=== PATIENT | male | born 1990 | race African-American/Black ===

== ENCOUNTER 2016-10-31 11:35 | Emergency (ER) | payer SELFPAY ==
--- NOTE | 2016-10-31 12:42 | ER Document Report ---
HPI - HPI Pain Level: 4 Notes: Patient is a 26-year-old male who presents the ED complaining of lesions to his lips x1 day. Pt states that he also has left posterior thigh (hamstring) spasming and pain s/p feeling it pull while he was working 3 days ago. Pt states he has tried massage and otc meds with minimal relief. The pain does not radiate. He has occ sharp pain with spasming/soreness type pain. He is still able to ambulate. Pt requesting work note. He has not noticed any erythema, warmth, or ecchymosis. His lips began swelling this morning and lesions showed up. He has never had these lesions before. He is still able to eat/drink/swallow/breathe without any difficulties. He does have some pain associated. Denies any drug allergies or significant PMH otherwise. Denies any headache, fever, neck pain, changes in vision/speech, URI, sore throat, chest pain, palpitations, syncope, cough, shortness of breath, wheeze, dyspnea, abdominal pain, nausea/vomiting/diarrhea, urinary retention, dysuria, hematuria , numbness/tingling, muscle paralysis/weakness. - ROS Notes: REVIEW OF SYSTEMS: CONSTITUTIONAL : Denies fever, chills, or sweats. Denies recent illness. EENT: Denies eye, ear, throat, or mouth pain or symptoms. Denies nasal or sinus congestion or discharge. Denies throat, tongue, or mouth swelling or difficulty swallowing. CARDIOVASCULAR: Denies chest pain. Denies palpitations or racing or irregular heart beat. Denies ankle edema. RESPIRATORY: Denies cough, cold, or chest congestion. Denies shortness of breath, difficulty breathing, or wheezing. GASTROINTESTINAL: Denies abdominal pain or distention. Denies nausea, vomiting , or diarrhea. Denies blood in vomitus, stools, or per rectum. Denies black, tarry stools. Denies constipation. GENITOURINARY: Denies difficulty urinating, painful urination, burning, frequency, blood in urine, or discharge. MUSCULOSKELETAL: see hpi SKIN: see hpi HEMATOLOGIC : Denies easy bruising or bleeding. LYMPHATIC: Denies swollen, enlarged glands. NEUROLOGICAL: Denies confusion or altered mental status. Denies passing out or loss of consciousness. Denies dizziness or lightheadedness. Denies headache. Denies weakness or paralysis or loss of use of either side. Denies problems with gait or speech. Denies sensory loss, numbness, or tingling. ALL OTHER SYSTEMS REVIEWED AND NEGATIVE. Dictation was performed using [employer] voice recognition software - CARDIOVASCULAR Cardiovascular: DENIES: Chest pain - DERM Skin Color: Normal Past Medical History - Social History Smoking Status: Current Every Day Smoker Chew tobacco use (# tins/day): No Frequency of alcohol use: None Drug Abuse: None Family History: Reviewed & Not Pertinent Renal/ Medical History: Denies: Hx Peritoneal Dialysis Surgical Hx: Negative - Immunizations Immunizations up to date: Yes Hx Diphtheria, Pertussis, Tetanus Vaccination: Yes Vertical Provider Document - CONSTITUTIONAL Agree With Documented VS: Yes Notes: PHYSICAL EXAMINATION: GENERAL: Well-appearing, well-nourished and in no acute distress. HEAD: Atraumatic, normocephalic. EYES: Pupils equal round and reactive to light, extraocular movements intact, sclera anicteric, conjunctiva are normal. ENT: EAC clear b/l. TM's intact b/l without erythema, fluid, or perforation. Nares patent and without discharge. oropharynx clear without exudates. No tonsilar hypertrophy or erythema. Moist mucous membranes. No sinus tenderness. uvula midline. No palatine shift. No tongue protrusion or resp compromise. Mouth: + vesicular grouped erythemic lesions noted to lips consistent with herpes infection. + mild tenderness. NECK: Normal range of motion, supple without lymphadenopathy. No rigidity/ meningismus. LUNGS: Breath sounds clear to auscultation bilaterally and equal. No wheezes rales or rhonchi. HEART: Regular rate and rhythm without murmurs, rubs, gallops. Musculoskeletal: Lt LE: FROM to passive/active. Strength 5+/5. No obvious rupture noted. + tenderness/spasming to the posterior mid thigh. No palp tenderness along deep veins, nor is there any warmth, swelling, or erythema. No calf tenderness. Juliann neg. N/V intact distal. Extremities: No cyanosis, clubbing, or edema b/l. Peripheral pulses 2+. Capillary refill less than 3 seconds. NEUROLOGICAL: Cranial nerves grossly intact. Normal speech, normal gait. Normal sensory, motor exams PSYCH: Normal mood, normal affect. SKIN: see mouth exam. - INFECTION CONTROL TRAVEL OUTSIDE OF THE [place] IN LAST 30 DAYS: No - RESPIRATORY O2 Sat by Pulse Oximetry: 98 Course - Re-evaluation Re-evalutation: 10/31/16 12:55 Patient is an afebrile, well-hydrated, 26-year-old male who presents the ED with an initial oral herpes outbreak as well as muscle spasm/strain to the left posterior thigh. Vitals are stable. PE otherwise unremarkable. No imaging warranted at this time. Low suspicion/risk for any DVT, SVT, PE, ACS, pericarditis, dissection, rupture, fracture, respiratory compromise, pharyngeal /ty-tonsillar abscess, angioedema, sepsis, meningitis. Patient is aware that his condition can change from initial presentation and he needs to monitor symptoms closely and seek medical attention if any acute changes. I will send him home with a prescription for Valtrex, baclofen, and naproxen. Work note was provided. Conservative measures otherwise for symptoms. Recheck with your PCM this week. Consider consult with orthopedics/physical therapy. Return to the ED with any worsening/concerning symptoms otherwise as reviewed in discharge. Patient is in agreement. - Vital Signs Vital signs: Temp Pulse Resp BP Pulse Ox 98.0 F 74 16 136/87 H 98 10/31/16 11:48 10/31/16 11:48 10/31/16 11:48 10/31/16 11:48 10/31/16 11:48 Discharge - Discharge Clinical Impression: Oral herpes, Muscle strain Condition: Stable Disposition: HOME, SELF-CARE Instructions: Herpes Simplex ([facility]), Leg Pain Nonspecific ([facility]), Muscle Strain ( [facility]) Additional Instructions: Rest, Ice, Compression, Elevation Take meds as directed Avoid skin to skin contact with active herpes infection until lesions resolve Tylenol/ibuprofen as needed Light stretches daily Strength exercises as able Moist heat and massage may help F/u with your PCP this week for a recheck Consider consult(s) with Orthopedics/physical therapy for ongoing/worsening symptoms Return to the ED with any worsening symptoms and/or development of fever, headache, chest pain, palpitations, syncope, shortness of breath, trouble breathing, abdominal pain, n/v/d, muscle weakness/paralysis, numbness/tingling, swelling, redness, or other worsening symptoms that are concerning to you. Prescriptions: Baclofen [Baclofen 10 mg Tablet] 5 mg PO BID PRN #10 tablet PRN Reason: Naproxen 500 mg PO BID PRN #30 tablet PRN Reason: Valacyclovir HCl [Valacyclovir] 2 g PO BID #4 tablet Forms: Elevated Blood Pressure, Smoking Cessation Education, Return to Work Referrals: [facility] ([facility] [Provider Group] - Follow up as needed [facility] [Provider Group] - Follow up as needed
[2016-10-31 12:54] VITALS: BP 135/80
== END 2016-10-31 12:54 | disposition home or self-care (01) ==
LOC: ER 11:35
DX: B00.89 Other herpesviral infection (principal); K13.0 Diseases of lips; M62.838 Other muscle spasm; F17.200 Nicotine dependence, unspecified, uncomplicated
CPT/HCPCS: 99283

== ENCOUNTER 2019-01-14 18:05 | Emergency (ER) | payer SELFPAY ==
[2019-01-14] MEDS ORDERED: KETOROLAC TROMETHAMINE INJ/PF 30 MG/1 ML SDV IM ONE (18:31)
[2019-01-14] MEDS ORDERED: DEXAMETHASONE SOD PHOS INJ 10 MG/1 ML VIAL IM ONE (18:31)
--- NOTE | 2019-01-14 18:33 | ER Document Report ---
ED Fall - General Chief Complaint: Fall Injury Stated Complaint: FALL/BACK PAIN,LEFT KNEE PAIN Time Seen by Provider: 01/14/19 18:28 Primary Care Provider: [facility] ([facility] [Provider Group] - Follow up as needed Mode of Arrival: Ambulatory Information source: Patient Notes: 28-year-old male presented to ED for complaint of back pain sore throat and left knee left knee pain. He states he fell landing on his tailbone about noontime when he slipped on the sidewalk. He states he has not had any medicine since he fell. He states someone else in the family has strep and he does have a sore throat. Patient is alert and oriented respirations regular nonlabored speaking in full sentences. He does walk with even steady gait. TRAVEL OUTSIDE OF THE [place] IN LAST 30 DAYS: No - HPI Occurred: This afternoon Where: Outdoors, Public place Context: Slipped Associated symptoms: None Location of injury/pain: Back, Knee Quality of pain: Achy, Sharp Severity: Moderate Pain Level: 3 - Related data Allergies/Adverse Reactions: No Known Allergies Allergy (Verified 10/31/16 11:50) Past Medical History - General Information source: Patient - Social History Smoking Status: Never Smoker Frequency of alcohol use: None Drug Abuse: None Lives with: Family Family History: Reviewed & Not Pertinent Patient has suicidal ideation: No Patient has homicidal ideation: No - Past Medical History Cardiac Medical History: Reports: None Pulmonary Medical History: Reports: None EENT Medical History: Reports: None Neurological Medical History: Reports: None Endocrine Medical History: Reports: None Renal/ Medical History: Reports: None Malignancy Medical History: Reports None GI Medical History: Reports: None Musculoskeletal Medical History: Reports Hx Musculoskeletal Trauma Skin Medical History: Reports None Psychiatric Medical History: Reports: Hx Depression Traumatic Medical History: Reports: Hx Fractures - Left wrist Infectious Medical History: Reports: None Surgical Hx: Negative Past Surgical History: Reports: None - Immunizations Immunizations up to date: Yes Hx Diphtheria, Pertussis, Tetanus Vaccination: No Review of Systems - Review of Systems Constitutional: No symptoms reported EENT: Nose congestion, Nose discharge, Sinus discharge, Throat pain Cardiovascular: No symptoms reported Respiratory: No symptoms reported Gastrointestinal: No symptoms reported Genitourinary: No symptoms reported Male Genitourinary: No symptoms reported Musculoskeletal: Back pain, Muscle pain, Muscle stiffness Skin: No symptoms reported Hematologic/Lymphatic: No symptoms reported Neurological/Psychological: No symptoms reported -: Yes All other systems reviewed and negative Physical Exam - Vital signs Vitals: Temp Pulse Resp BP Pulse Ox 98.3 F 78 18 137/85 H 98 01/14/19 18:06 01/14/19 18:06 01/14/19 18:06 01/14/19 18:06 01/14/19 18:06 Interpretation: Normal - General General appearance: Appears well, Alert - HEENT Head: Normocephalic, Atraumatic Eyes: Normal Pupils: PERRL Ears: Normal External canal: Normal Tympanic membrane: Normal Sinus: Normal Nasal: Purulent discharge, Swelling Mouth/Lips: Normal Mucous membranes: Normal Pharynx: Post nasal drainage Neck: Normal - Respiratory Respiratory status: No respiratory distress Chest status: Nontender Breath sounds: Normal Chest palpation: Normal - Cardiovascular Rhythm: Regular Heart sounds: Normal auscultation Murmur: No - Abdominal Inspection: Normal Distension: No distension Bowel sounds: Normal Tenderness: Nontender Organomegaly: No organomegaly - Back Back: Normal, Tender, Vertebra tenderness - Lumbar area denies any loss of control of bowel bladder, saddle anesthesia, loss of control or sensation to the lower extremities. Patient is walking with a even steady gait. - Extremities General upper extremity: Normal inspection, Nontender, Normal color, Normal ROM, Normal temperature General lower extremity: Normal inspection, Nontender, Normal color, Normal ROM, Normal temperature, Normal weight bearing. No: Juliann's sign - Neurological Neuro grossly intact: Yes Cognition: Normal Orientation: AAOx4 Mckinley Coma Scale Eye Opening: Spontaneous Mckinley Coma Scale Verbal: Oriented [place] Coma Scale Motor: Obeys Commands [place] Coma Scale Total: 15 Speech: Normal Motor strength normal: LUE, RUE, LLE, RLE Sensory: Normal - Psychological Associated symptoms: Normal affect, Normal mood - Skin Skin Temperature: Warm Skin Moisture: Dry Skin Color: Normal Course - Re-evaluation Re-evalutation: 01/14/19 19:35 After performing a Medical Screening Examination, I estimate there is LOW risk for EXPANDING OR RUPTURED ABDOMINAL AORTIC ANEURYSM, CAUDA EQUINA SYNDROME, EPIDURAL MASS LESION, or HERNIATED DISK CAUSING SEVERE SPINAL STENOSIS, thus I consider the discharge disposition reasonable. I have reevaluated this patient multiple times and no significant life threatening changes are noted. The patient and I have discussed the diagnosis and risks, and we agree with discharging home and close follow-up. We also discussed returning to the Emergency Department immediately if new or worsening symptoms occur with the understanding that symptoms and presentations can change. We have discussed the symptoms which are most concerning (e.g., saddle anesthesia, urinary or bowel i ncontinence or retention, changing or worsening pain) that necessitate immediate return. She also has a viral sore throat strep test was negative. I have discussed this with patient. - Vital Signs Vital signs: Temp Pulse Resp BP Pulse Ox 98.3 F 71 16 142/81 H 97 01/14/19 19:36 01/14/19 19:36 01/14/19 19:36 01/14/19 19:36 01/14/19 19:36 - Diagnostic Test Radiology reviewed: Image reviewed, Reports reviewed Discharge - Discharge Clinical Impression: Sore throat (viral) Fall Qualifiers: Encounter type: initial encounter Qualified Code(s): W19.XXXA - Unspecified fall, initial encounter Low back pain Qualifiers: Chronicity: acute Back pain laterality: bilateral Sciatica presence: without sciatica Qualified Code(s): M54.5 - Low back pain Condition: Stable Disposition: HOME, SELF-CARE Instructions: Family Physicians / Practices Additional Instructions: LOW BACK PAIN: Three out of every four people will have an episode of disabling back pain during their lifetime. Most commonly the pain is due to straining of the muscles and ligaments in the low back. Usual treatment includes: (1) Rest on a firm surface. Avoid lying on your stomach. (2) Ice pack the painful area. After a few days, gentle heat may be used intermittently to relax the area, or ice packs can be continued. (3) Medication may be needed -- muscle relaxers and antiinflammatory medicines are commonly used. (4) As the back improves, exercises are prescribed to strengthen the back and abdominal muscles. Your doctor will advise you on the proper care for your back at each stage in your recovery. You may be better in a few days -- or healing may take several weeks. If new symptoms of a "herniated disc" (radiation of pain, numbness, or tingling down the back of the leg or weakness in the leg) occur, you should be re-examined. Further testing may be necessary. SORE THROAT: Sore throats may be caused by viruses, bacteria, or fungi. Most are due to a virus, and must get better on their own. Bacterial sore throats, particularly those due to "strep," need treatment with antibiotics. If an antibiotic is prescribed, be sure to take the medication for a full 10 days. Failure to take the antibiotic can result in complications such as rheumatic fever. Sometimes, an injection of antibiotics is given instead of pills or liquid. This single "shot" is equal in effectiveness to the oral medication. To relieve symptoms, take acetaminophen for pain. Sip clear liquids frequently, or eat popsicles or ice chips. Anesthetic sprays or lozenges may help. Make sure the air in the room is not too dry. Avoid using decongestants or antihistamines. Call the doctor if there is no improvement in two days, or if you have difficulty breathing, increasing throat pain, high fever, rash, or frequent vomiting. MUSCLE RELAXERS: Muscle relaxing medications are usually prescribed for acute muscle spasm or injury to the neck and back. They are often combined with antiinflammatory pain medication for increased relief. You may stop the muscle relaxer when the pain and stiffness have improved. Start the medication again if spasms recur. Muscle relaxers may cause drowsiness, especially with the first dose. Do not operate machinery or drive while under the effects of the medication. Most muscle relaxers last up to 24 hours. Do not combine the medication with alcohol. ICE PACKS: Apply ice packs frequently against the painful area. Many different schedules are recommended, such as "20 minutes on, 20 minutes off" or "one hour ice, two hours rest." If you need to work, you may need to go longer between ice treatments. You should plan to have the area ice packed AT LEAST one fourth of the time. The ice should be applied over the wrap, tape, or splint, or over a layer of cloth -- not directly against the skin. Some ice bags have a built-in cloth and can be put directly on the skin. WARM PACKS: After approximately two days, apply gentle heat (such as a heating pad or hot water bottle) for about 20 to 30 minutes about every two hours -- at least four times daily. Warmth and elevation will help you make a more rapid recovery, and will ease the pain considerably. Do not use HOT heat, and never apply heat for longer than 30 minutes. The continuous heat can invisibly damage skin and muscles -- even when no burn is seen on the surface. Damaged muscles can make you MORE sore. Stretching Exercises for the Back The physician has recommended that you begin stretching exercises for your back. These are often used even while the back is painful. However, you should notify the physician if the activities seem to increase your pain. PELVIC TILT: Lie flat on your back with knees bent. Tighten your stomach and buttock muscles so it flattens your lower back against the floor. Hold 10 seconds. Repeat 10 times, twice daily. KNEE RAISE: Lying on the back with knees bent, raise one knee to your chest, then the other. Hold both knees against the chest 10 seconds, then lower one knee at a time. Repeat 10 times, twice daily. PARTIAL TRUNK RAISE: Lie face down, arms at your sides. Keeping your waist on the floor, use your arms raise your chest up. Support yourself on your elbows for 30 seconds. Repeat twice daily, increasing the time to two minutes as you recover. STEROID MEDICATION: You have been given an injection of medicine of the cortisone/steroid class. This medication is used to control inflammation or allergy. It is often continued as a pill for a short period of time, until the acute process subsides. There are usually no side effects from short-term use of cortisone-like medications. Some persons feel an increased sense of well-being and are not sleepy at bedtime. Long-term use of cortisone medications is best avoided, unless required for a severe condition. If your condition does not remit, or relapses after the course of corticosteroid medication, you should consult your physician. Toradol Injection You have been given an injection of ketorolac tromethamine (Toradol). This is an excellent, safe drug for pain control. It also has potent antiinflammatory action. You should have significant pain relief within about one hour. Toradol is not addicting and is non-sedating. It does not interfere with driving or work. Call or return if you develop itching, hives, shortness of breath, or rash. FOLLOW-UP CARE: If you have been referred to a physician for follow-up care, call the physicians office for an appointment as you were instructed or within the next two days. If you experience worsening or a significant change in your symptoms, notify the physician immediately or return to the Emergency Department at any time for re-evaluation. Prescriptions: Cyclobenzaprine HCl [Flexeril 10 mg Tablet] 10 mg PO TIDP PRN #15 tab PRN Reason: Forms: Elevated Blood Pressure, Return to Work Referrals: [facility] ([facility]) [Provider Group] - Follow up as needed
--- NOTE | 2019-01-14 18:59 | RADIOLOGY REPORT (SQ) ---
EXAM DESCRIPTION: L SPINE WHOLE COMPLETED DATE/TIME: 01/14/2019 6:48 pm REASON FOR STUDY: fall low back pain COMPARISON: None. NUMBER OF VIEWS: Five views including obliques. TECHNIQUE: AP, lateral, oblique, and sacral radiographic images acquired of the lumbar spine. LIMITATIONS: None. FINDINGS: MINERALIZATION: Normal. SEGMENTATION: Normal. No transitional anatomy. ALIGNMENT: Decreased lordosis. VERTEBRAE: Maintained height. No fracture or worrisome bone lesion. DISCS: Preserved height. No significant osteophytes or end plate irregularity. POSTERIOR ELEMENTS: Pedicles and facets are intact. No pars defect or posterior arch defects. HARDWARE: None in the spine. PARASPINAL SOFT TISSUES: Normal. PELVIS: Intact as visualized. No fractures or worrisome bone lesions. SI joints intact. OTHER: No other significant finding. IMPRESSION: Decrease lordosis. No acute finding. TECHNICAL DOCUMENTATION: JOB ID: [id number] [employer]- All Rights Reserved Reading location - IP/workstation name: [email or web address]
[2019-01-14 19:36] VITALS: BP 142/81
== END 2019-01-14 19:38 | disposition home or self-care (01) ==
LOC: ER 18:05
DX: M54.5 Low back pain (principal); M25.562 Pain in left knee; W01.0XXA Fall on same level from slipping, tripping and stumbling without subsequent striking against object, initial encounter; Y92.480 Sidewalk as the place of occurrence of the external cause; J02.8 Acute pharyngitis due to other specified organisms; B97.89 Other viral agents as the cause of diseases classified elsewhere; Z20.818 Contact with and (suspected) exposure to other bacterial communicable diseases; R09.81 Nasal congestion; M79.10 Myalgia, unspecified site; R09.82 Postnasal drip
CPT/HCPCS: 99283; 96372; 87070; 87880; 72110; J1885; J1100

== ENCOUNTER 2019-03-11 23:39 | Emergency (ER) | payer SELFPAY ==
[2019-03-12] MEDS ORDERED: ACETAMINOPHEN 325 MG TABLET PO ONE (00:17)
[2019-03-12 00:46] LABS: A TYPE INFLUENZA AG NEGATIVE (NEGATIVE); B INFLUENZA AG NEGATIVE (NEGATIVE)
--- NOTE | 2019-03-12 04:31 | ER Document Report ---
HPI - HPI Time Seen by Provider: 03/12/19 04:02 Pain Level: 3 Context: Patient is a 28-year-old male that comes emergency department for chief complaint of 2 days of sick symptoms. He states he started hurting all over, getting chills, he threw up twice, he had a loose episode of stool, he had some coughing, and he started having random headaches. He states symptoms continued today except for the vomiting. He states that he felt terrible until after he came and had Tylenol, he states now he feels mostly better other than some generalized body aches. He denies current headache, shortness of breath, abdominal pain, chest pain. He is not vaccinated for influenza. He takes no daily medications, denies recreational drugs, denies any past medical history. - CONSTITUTIONAL Constitutional: DENIES: Fever, Chills - NEURO Neurology: REPORTS: Headache - RESPIRATORY Respiratory: REPORTS: Coughing - GASTROINTESTINAL Gastrointestinal: REPORTS: Abdominal Pain - REPRODUCTIVE Reproductive: DENIES: : Past Medical History - General Information source: Patient - Social History Smoking Status: Never Smoker Frequency of alcohol use: Occasional Lives with: Family Family History: Reviewed & Not Pertinent Patient has suicidal ideation: No Patient has homicidal ideation: No Renal/ Medical History: Denies: Hx Peritoneal Dialysis Musculoskeletal Medical History: Reports Hx Musculoskeletal Trauma Psychiatric Medical History: Reports: Hx Depression Traumatic Medical History: Reports: Hx Fractures - Left wrist - Immunizations Immunizations up to date: Yes Hx Diphtheria, Pertussis, Tetanus Vaccination: No Vertical Provider Document - CONSTITUTIONAL General Appearance: WD/WN, No Apparent Distress - INFECTION CONTROL TRAVEL OUTSIDE OF THE [place] IN LAST 30 DAYS: No - HEENT HEENT: Atraumatic, Normal ENT Exam, Normocephalic - NECK Neck: Normal Inspection - No nuchal rigidity or lymphadenopathy - RESPIRATORY Respiratory: Breath Sounds Normal, No Respiratory Distress. negative: Wheezing - CARDIOVASCULAR Cardiovascular: Regular Rate, Regular Rhythm. negative: Tachycardia - GI/ABDOMEN Gastrointestinal: Abdomen Soft, Abdomen Non-Tender. negative: Abdomen Tender - BACK Back: Normal Inspection - MUSCULOSKELETAL/EXTREMETIES Musculoskeletal/Extremeties: MAEW, FROM, Non-Tender - NEURO Level of Consciousness: Awake, Alert, Appropriate - DERM Integumentary: Warm, Dry, No Rash Course - Re-evaluation Re-evalutation: Patient with a variety of symptoms which does suggest a viral illness. He was febrile at 103 and tachycardic on arrival but this resolved after 650 mg of Tylenol. On my exam patient has no complaints other than some mild body aches. His abdomen is benign, lungs clear, denies headache, no nuchal rigidity, unremarkable oropharyngeal exam. Influenza is negative. I did discuss possible laboratory work-up to further evaluate the patient but he declines. He states he would rather be treated, given work release, and rest. I feel this is appropriate based on his repeated unremarkable vital signs, unremarkable exam, likely viral illness. Discussed follow-up and return precautions. Patient states understanding and agreement. Stable at time of discharge. - Vital Signs Vital signs: Temp Pulse Resp BP Pulse Ox 98.7 F 90 18 127/72 H 98 03/12/19 02:36 03/12/19 02:36 03/12/19 02:36 03/12/19 02:36 03/12/19 02:36 Discharge - Discharge Clinical Impression: Body aches, Cough Fever Qualifiers: Fever type: unspecified Qualified Code(s): R50.9 - Fever, unspecified Vomiting Qualifiers: Vomiting type: unspecified Vomiting Intractability: non-intractable Nausea presence: with nausea Qualified Code(s): R11.2 - Nausea with vomiting, unspecified Condition: Stable Disposition: HOME, SELF-CARE Additional Instructions: Your evaluation is consistent with influenza B. This takes time to resolve, typically has high fevers, body aches, cough, vomiting, etc. Take the Phenergan if needed for nausea, drink plenty fluids, you can take 1000 mg of Tylenol and 600 mg of ibuprofen every 6 hours to have optimal treatment of fever and body aches. You can return to regular activities the day after fever resolves. Return if you worsen including difficulty breathing, uncontrolled vomiting, or any other concerning or worsening symptoms. Prescriptions: Promethazine HCl [Phenergan 25 mg Tablet] 25 mg PO Q6H PRN #15 tablet PRN Reason: Forms: Return to Work
[2019-03-12 04:47] VITALS: BP 119/72
== END 2019-03-12 04:46 | disposition home or self-care (01) ==
LOC: ER 23:39
DX: M79.10 Myalgia, unspecified site (principal); R05 Cough; R50.9 Fever, unspecified; R51 Headache; R11.2 Nausea with vomiting, unspecified; R10.9 Unspecified abdominal pain
CPT/HCPCS: 87804; 99283

== ENCOUNTER 2019-04-02 10:53 | Emergency (ER) | payer SELFPAY ==
[2019-04-02 11:04] VITALS: BP 119/70
[2019-04-02] MEDS ORDERED: LIDOCAINE 5% (700 MG) TRANSDERMAL ADH..PATCH TP ONE (11:43)
[2019-04-02] MEDS ORDERED: HYDROCODONE/ACETAMINOPHEN 5-325 MG TABLET PO ONE (11:43)
--- NOTE | 2019-04-02 11:49 | ER Document Report ---
HPI - HPI Patient complains to provider of: Back pain Time Seen by Provider: 04/02/19 11:34 Pain Level: 3 Context: Patient states he slipped and fell about a month ago and had right lower back pain. Patient was seen after that fall and had x-rays that did not show any acute fracture. Patient states that 2 days ago he started to have back pain in the same location. Patient denies any new injury. Patient denies any urinary symptoms. Patient denies any fever, nausea or vomiting. Patient does complain of pain to the posterior head and neck area. Patient denies any photophobia or phonophobia. Associated Symptoms: Headache Similar symptoms previously: Yes Recently seen / treated by doctor: No - ROS ROS below otherwise negative: Yes Systems Reviewed and Negative: Yes All other systems reviewed and negative - CONSTITUTIONAL Constitutional: DENIES: Fever - NEURO Neurology: REPORTS: Headache. DENIES: Weakness - GASTROINTESTINAL Gastrointestinal: DENIES: Nausea - MUSCULOSKELETAL Musculoskeletal: REPORTS: Back Pain Past Medical History - General Information source: Patient - Social History Smoking Status: Never Smoker Frequency of alcohol use: None Drug Abuse: None Occupation: [employer] Family History: Reviewed & Not Pertinent Patient has suicidal ideation: No Patient has homicidal ideation: No - Medical History Medical History: Negative Renal/ Medical History: Denies: Hx Peritoneal Dialysis Musculoskeletal Medical History: Reports Hx Musculoskeletal Trauma Psychiatric Medical History: Reports: Hx Depression Traumatic Medical History: Reports: Hx Fractures - Left wrist Surgical Hx: Negative - Immunizations Immunizations up to date: Yes Hx Diphtheria, Pertussis, Tetanus Vaccination: No Vertical Provider Document - CONSTITUTIONAL Agree With Documented VS: Yes Exam Limitations: No Limitations General Appearance: WD/WN, No Apparent Distress Notes: PHYSICAL EXAMINATION: GENERAL: Well-appearing, well-nourished and in no acute distress. HEAD: Atraumatic, normocephalic. EYES: sclera clear, anicteric, conjunctiva are normal. ENT: nares patent, Moist mucous membranes. NECK: Tenderness to paraspinal cervical muscles, normal range of motion, supple no lymphadenopathy, no meningismus LUNGS: respirations unlabored HEART: Regular rate and rhythm without murmurs EXTREMITIES: Normal range of motion, no pitting or edema. No cyanosis. Gait normal, pt ambulates without difficulty BACK: Right lumbar paraspinal tenderness, no midline tenderness, no deformities or step-offs. No CVA tenderness. NEUROLOGICAL: Cranial nerves grossly intact. Normal speech, normal gait. No saddle anesthesia. PSYCH: Normal mood, normal affect. SKIN: Warm, Dry, normal turgor, no rashes or lesions noted. - INFECTION CONTROL TRAVEL OUTSIDE OF THE [place] IN LAST 30 DAYS: No Course - Re-evaluation Re-evalutation: 04/02/19 11:46 Patient presents with low back pain and likely tension headache at this time. No meningismus, no fever. Patient denies any urinary retention or incontinence or hematuria. The patient presents with low back pain without signs of spinal cord compression, cauda equina syndrome, infection, aneurysm, or other serious etiology. The patient is neurologically intact. Given the extremely risk of these diagnoses further testing and evaluation for these possibilities does not appear to be indicated at this time. The patient presents with headache without signs of [employer] bleed, stroke, infection, or other serious etiology. The patient is neurologically intact. Given the extremely low risk of these diagnoses further testing and evaluation for these possibilities does not appear to be indicated at this time. The patient has been instructed to return if the symptoms worsen or change in any way. - Vital Signs Vital signs: Temp Pulse Resp BP Pulse Ox 98.7 F 73 14 119/70 97 04/02/19 11:03 04/02/19 11:03 04/02/19 11:03 04/02/19 11:03 04/02/19 11:03 Discharge - Discharge Clinical Impression: Tension headache Low back pain Qualifiers: Chronicity: acute Back pain laterality: right Sciatica presence: without sciatica Qualified Code(s): M54.5 - Low back pain Condition: Stable Disposition: HOME, SELF-CARE Instructions: Headache ([facility]), Ice Packs ([facility]), Low Back Pain ([facility]), Warm Packs ([facility]) Additional Instructions: Return immediately for any new or worsening symptoms Followup with your primary care provider, call tomorrow to make a followup appointment Prescriptions: Lidocaine [Lidoderm 5% (700 mg) Transdermal Patch] 1 patch TP DAILY PRN #10 adh..patch PRN Reason: Naproxen [Naprosyn 250 Nmg Tablet] 1 tab PO BID #14 tablet Methocarbamol [Robaxin 500 Mg Tablet] 500 mg PO QID PRN #30 tablet PRN Reason: Forms: Return to Work Referrals: [facility] [Provider Group] - Follow up as needed [facility] [Provider Group] - Follow up as needed
== END 2019-04-02 12:06 | disposition home or self-care (01) ==
LOC: ER 10:53
DX: M54.5 Low back pain (principal); G44.209 Tension-type headache, unspecified, not intractable
CPT/HCPCS: 99283